=== PATIENT | male | born 1990 | race Caucasian/White ===

== ENCOUNTER 2020-05-25 16:04 | Outpatient (REF) | payer OTHER, SELFPAY | END 2020-05-25 16:05 | disposition home or self-care (01) | LOC: HO.LAB 16:04 | PROVIDERS: Visit Provider Internal Medicine | DX: Z20.828 Contact with and (suspected) exposure to other viral communicable diseases (principal) | CPT/HCPCS: C9803; U0003 ==

== ENCOUNTER 2020-10-12 11:38 | Outpatient (REF) | payer OTHER, SELFPAY ==
[2020-10-12 11:51] LABS: COVID-19 Test Positive (Negative); IDNOW Serial# 55D5AD1C
== END 2020-10-12 11:39 | disposition home or self-care (01) ==
LOC: HO.LAB 11:38
PROVIDERS: Visit Provider Internal Medicine
DX: Z20.822 Contact with and (suspected) exposure to COVID-19 (principal)
CPT/HCPCS: 36415; 87635; C9803

== ENCOUNTER 2020-10-25 14:14 | Outpatient (REF) | payer OTHER, SELFPAY ==
[2020-10-25 14:32] LABS: COVID-19 Test Negative (Negative); IDNOW Serial# 55D5AD1C
== END 2020-10-25 14:15 | disposition home or self-care (01) ==
LOC: HO.LAB 14:14
PROVIDERS: Visit Provider Internal Medicine
DX: Z20.822 Contact with and (suspected) exposure to COVID-19 (principal)
CPT/HCPCS: 36415; 87635; C9803

== ENCOUNTER 2021-09-21 07:51 | Outpatient (REF) | payer OTHER, SELFPAY | END 2021-09-21 07:52 | disposition home or self-care (01) | LOC: HO.HOSX 07:51 | PROVIDERS: Visit Provider Physician Assistant | DX: Z13.89 Encounter for screening for other disorder (principal) ==

== ENCOUNTER 2022-10-01 17:14 | Emergency (ER) | payer MEDICAID, SELFPAY ==
[2022-10-01 17:18] VITALS: BP 125/59; PULSE 79; RESP 16; TEMP 36.7; O2SAT 99; BMI 18.6
[2022-10-01] MEDS: Lidocaine HCl 1 % MPF 5 ML VIAL SUBCUT (17:51)
--- NOTE | 2022-10-01 17:56 | ED_ITS ---
HPI - Wound/Laceration General Chief Complaint: Wound/Laceration Stated Complaint: finger lac Time Seen by Provider: 10/01/22 17:34 Source: patient Mode of arrival: ambulatory Limitations: no limitations History of Present Illness HPI narrative: 31-year-old male who is up-to-date on all immunizations including tetanus vaccine was presenting to the ER with complaints of laceration to his left hand 4th digit dorsal aspect at the joint that occurred prior to arrival while he was opening up a [employer] container can. He denies any bony tenderness any thoughts of foreign bodies or weakness or paresthesias or any other symptoms complaints or concerns at this time. Onset (ago): minute(s) (Prior to arrival) Extremity Location: left: hand Place: home Patient tetanus UTD: Yes Context: accidental Associated symptoms: none Treatments prior to arrival: bandage Related Data Allergies Allergy/AdvReac Type Severity Reaction Status Date / Time No Known Allergies Allergy Verified 10/01/22 17:23 [No Known Allergies*] Review of Systems Review of Systems: Constitutional : No Fever, No Chills, Cardiovascular : No Chest Pain, No SOB Respiratory : No Dyspnea Gastrointestinal : No abdominal pain Musculoskeletal : No Joint Swelling Skin : positive skin laceration, No Foreign bodies, No rash, No surrounding erythema Neuro : No Weakness, No Numbness/tingling Psych : No SI/HI/thoughts of self injury Yes all other systems are reviewed and are negative [facility] Past Medical History Attestation statement: The following information was validated with the patient. Source: old records reviewed and nursing notes reviewed Social History Social History Advance Directives: No Advance Directives Information Provided: No Physical Exam Vital Signs: Vital Signs: Last Vital Signs Temp 98.1 F 10/01/22 17:18 Pulse 79 10/01/22 17:18 Resp 16 10/01/22 17:18 BP 125/59 L 10/01/22 17:18 Pulse Ox 99 10/01/22 17:18 O2 Del Method Room Air 10/01/22 17:18 BMI result Body Mass Index 18.6 vital signs have been reviewed as normal and appeared to be correct. Blood pressure 125/59 Heart rate normal. Respiration rate normal. Temperature normal. Oxygen saturation normal. Appearance: Alert. Oriented X3. No acute distress. Head: Normal external exam. Normocephalic. Atraumatic. Eyes: PERRLA. EOMI. Conjunctiva and sclera normal. Eyelids normal. ENT: Pharynx normal. Uvula midline. Moist mucous membranes. Neck: Normal inspection. Neck supple. FROM. CVS: Normal heart rate and rhythm. Respiratory: No respiratory distress. Painless inspiration. Skin: Skin warm and dry. Normal skin color. Normal skin turgor. Patient 1 cm superficial laceration to the left hand at the dorsal aspect of the ring finger over the PIP. No active bleeding or bony tenderness or obvious ligamentous or tendon injury noted. No additional rashes/lesions noted. Extremities: Extremities exhibit normal range of motion. Extremities nontender. Neuro: Oriented X 3. No motor deficit. No sensory deficit. Reflexes normal. Normal steady gait. No focal neuro deficits noted. Vascular: + radial pulses. Normal cap refill. No cyanosis noted to upper extremity nails and lower extremity toes nails. Course Course Course Narrative: Patient now status post laceration repair with a for interrupted simple stitches. No imaging indicated at this time. Will DC home with symptomatic treatment antibiotics along with instructions to return in 10-14 days for suture removal and to follow up prior if signs of infection. Patient understands agrees the plan. Medications Administered Discontinued Medications Generic Name Dose Route Start Last Admin Trade Name Oswald PRN Reason Stop Dose Admin Lidocaine HCl 5 ml 10/01/22 17:33 10/01/22 17:51 Lidocaine Hcl 1 % Mpf 5 Ml Vial SUBCUT 10/01/22 17:34 5 ml ONCE ONE Administration Procedures Laceration Laceration 1: Site: hand Side (If applicable): left Size (cm): 1 Description: linear and flap Depth: simple, single layer Local Anesthetic: lidocaine 1% Amount of anesthesia used (mL): 3 Pre-repair: wound explored, irrigated extensively and deep structures intact Skin layer closed with: nylon Size (cm): 4-0 Number of sutures: 4 Technique: simple, interrupted Discharge Plan Discharge Clinical Impression: Finger laceration Patient Disposition: Home, Self-Care Instructions: Finger Laceration (ED) Referrals: Hannah Hubbard PA [Emergency Midlevel Provider] - 10 days (for suture removal) Stand Alone Forms: Work/School Release
== END 2022-10-01 18:18 | disposition home or self-care (01) ==
PROVIDERS: Emergency Provider Internal Medicine
DX: S61.215A Laceration without foreign body of left ring finger without damage to nail, initial encounter (principal); W26.8XXA Contact with other sharp object(s), not elsewhere classified, initial encounter; Y93.9 Activity, unspecified; Y92.009 Unspecified place in unspecified non-institutional (private) residence as the place of occurrence of the external cause; Y99.9 Unspecified external cause status
CPT/HCPCS: 12041; 29130; 99282; 99284

== ENCOUNTER 2023-04-14 12:38 | Emergency (ER) | payer MEDICAID, SELFPAY ==
--- NOTE | ~2023-04-14 | XR_ITS ---
EXAMINATION: XR HAND, RIGHT CLINICAL INFORMATION: Pain status post injury COMPARISON: 08/09/2017 TECHNIQUE: PA, lateral, and oblique views of the right hand. FINDINGS: The bones and soft tissues are notable for chronic appearing healed deformity fifth metacarpal neck and head. Overlying soft tissue swelling.. No fracture. Alignment is anatomic. Joint spaces are maintained. Appearances unchanged from baseline. XR/XR hand RT 2V IMPRESSION: No acute findings. Chronic deformity fifth metacarpal.
[2023-04-14 13:10] VITALS: BP 105/60; PULSE 82; RESP 17; TEMP 36.8; O2SAT 98; BMI 17.3
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
[2023-04-14 17:14] VITALS: BP 131/74; PULSE 64; RESP 16; TEMP 36.8; O2SAT 98
[2023-04-14] MEDS: Acetaminophen 325 MG TABLET 975 MG PO (18:51)
--- NOTE | 2023-04-14 18:52 | MHC.EDTECH ---
PROVIDER FRANKY ASSESS AND ADJUSTED SPLINT APPLICATION ON PATIENT RIGHT HAND RING FINGER .
== END 2023-04-14 19:20 | disposition home or self-care (01) ==
PROVIDERS: Emergency Provider Internal Medicine
DX: S62.605A Fracture of unspecified phalanx of left ring finger, initial encounter for closed fracture (principal); Y04.2XXA Assault by strike against or bumped into by another person, initial encounter; Y93.9 Activity, unspecified; Y92.9 Unspecified place or not applicable; Y99.9 Unspecified external cause status
CPT/HCPCS: 29125; 73120; 99283; 99284

== ENCOUNTER 2023-04-30 08:40 | Outpatient (REF) | payer MEDICAID, SELFPAY ==
--- NOTE | ~2023-04-30 | XR_ITS ---
EXAMINATION: XR HAND, RIGHT CLINICAL INFORMATION: Pain. COMPARISON: Radiographs dated 04/14/2023. TECHNIQUE: PA, lateral, and oblique views of the right hand. FINDINGS: There is bony demineralization. There is stable alignment of a mildly impacted, apex volar angulated fracture of the base of the fourth proximal phalanx. No significant new callus formation is noted. A healed boxer's fracture is seen of the fifth metacarpal neck. No acute fracture or dislocation is seen. There is no abnormal bone erosion. The proximal and distal carpal rows are intact. There is no focal soft tissue swelling, gas or foreign body. XR/XR hand RT min 3V IMPRESSION: There is stable alignment of a mildly impacted, apex volar angulated fracture of the base of the fourth proximal phalanx. No significant new callus formation is noted.
== END 2023-04-30 08:41 | disposition home or self-care (01) ==
LOC: HO.HOSX 08:40
PROVIDERS: Visit Provider Orthopaedic Surgery
DX: S62.614A Displaced fracture of proximal phalanx of right ring finger, initial encounter for closed fracture (principal)
CPT/HCPCS: 73130; 99212

== ENCOUNTER 2023-04-30 09:35 | Outpatient (AMB) | payer MEDICAID, SELFPAY ==
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
[2023-04-30 09:46] VITALS: BMI 17.2
== END 2023-04-30 11:01 | disposition home or self-care (01) ==
PROVIDERS: Visit Provider Physician Assistant
DX: S62.619A Displaced fracture of proximal phalanx of unspecified finger, initial encounter for closed fracture (principal)
CPT/HCPCS: 99204

== ENCOUNTER 2023-05-03 08:54 | Day surgery (SDC) | payer MEDICAID, SELFPAY ==
--- NOTE | 2023-05-02 12:25 | P.CONAN_ITS ---
Documented by User: Richelle Brooks NP 05/02/23 12:25 HPI - Anesthesia Eval Consult details Narrative: 32yo M for Right Small Ring Finger CRPP vs ORIF PMFSH Social History Social History Alcohol intake: never Patient Tobacco Use Status: Current everyday Tobacco user Tobacco use type: Cigarette Cigarettes Per Day: 6 Use of substances other than those prescribed or required for medical reasons: No Are you DNR?: No Advance Directives: No Advance Directives Information Provided: Yes Advance Directives on File: No Current occupational status: employed Current occupation: warehouse/ right hand dominant Meds Allergies Allergy/AdvReac Type Severity Reaction Status Date / Time No Known Allergies Allergy Verified 04/30/23 09:47 [No Known Allergies*] Exam Exam Date and Time: May 02, 2023 122 Assessment and Plan Assessment Anesthesia Assessment: Chart Reviewed Documented by User: Otilia Ha MD 05/03/23 10:35 PMFSH Family History Family history of problems with anesthesia: No Surgical History History of Problems with Anesthesia: No Social History Social History Alcohol intake: never Patient Tobacco Use Status: Current everyday Tobacco user Tobacco use type: Cigarette Cigarettes Per Day: 6 Use of substances other than those prescribed or required for medical reasons: No Are you DNR?: No Advance Directives: No Advance Directives Information Provided: Yes Advance Directives on File: No Current occupational status: employed Current occupation: warehouse/ right hand dominant Meds Allergies Allergy/AdvReac Type Severity Reaction Status Date / Time No Known Allergies Allergy Verified 04/30/23 09:47 [No Known Allergies*] Exam Airway Mallampati Class: II TM Dist: >3cm Neck ROM: Full Heart: rrr Lungs: cta Assessment and Plan Assessment Anesthesia Assessment: Anesthesia Plan Discussed and Smoking Cess. Discussed Final Anesthetic Review Family History of Problems with Anesthesia: No History of Problems with Anesthesia: No NPO: Yes ASA Class: II Final Preanesthetic Review: No Changes in Pt Med Stat, Meds/Allgs Chart Reviewe d, Consent Obtained/Reviewed and Anes Risks/Benef Reviewed Patient Risk: Intermediate Procedure Risk: Low Anesthetic Plan Anesthetic Plan: GA Disposition: Standard PACU
[2023-05-03] VITALS (9 sets, daily range): BP systolic 95–118; BP diastolic 44–70; PULSE 48–64; RESP 14–16; TEMP 36.1–36.6; O2SAT 98–100; BMI 18.4
--- NOTE | ~2023-05-03 | FL_ITS ---
EXAMINATION: XR FLUOROSCOPY WITH IMAGES CLINICAL INFORMATION: ORIF. COMPARISON: Previous x-ray of the right hand April 2023 TECHNIQUE: Fluoroscopy Supervised By: Dr. Susan Singer. Fluoroscopy Time: 27.32 seconds. Cumulative Dose: 0.7248 mGy. DAP: 0.0438 Gycm2. Images: 4. FINDINGS: Images demonstrate a K wire or pin transfixing the fracture of the base of the proximal phalanx of the fourth finger. There is improved alignment. FL/FL guidance in OR IMPRESSION: Fluoroscopy guidance for ORIF of right proximal phalanx fracture.
[2023-05-03] MEDS: Lactated Ringers 1,000 ML 100 ML IVCONT (09:43)
--- NOTE | 2023-05-03 09:44 | W.PM.OPN ---
Operative Note Operative Note Date of Service: 05/03/23 Narrative: Operative Note Narrative: Preop diagnosis: 1. 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 Right 5th metacarpal neck fracture , healing well. Postop diagnosis: Same Procedure: 1. right ring finger proximal phalanx fracture closed reduction percutaneous pinning Surgeon: Susan Singer MD Anesthesia: General Anesthesia Findings: ring finger proximal phalanx fracture times almost 3 weeks. I was able to improve the apex volar deformity by only about 10 degrees. Implants: 0.045 K-wires times x1 Tourniquet time: None EBL: Minimal Specimen: None Drains: None Complications: None Disposition: Brought to the recovery room in stable condition Plan: Follow-up in 10-14 days for a wound check, postop radiographs and for placement in a short-arm finger spica cast or splint Anticipate K-wire removal in 4 weeks based on interval bony healing Educate the patient that full fracture healing anticipated in approximately 8-12 weeks. Indications: The patient is 32 years old with a right ring finger proximal phalanx fracture that is greater than 2-week-old and is healing with about 45 degrees of apex volar angulation. . The risks and benefits of operative treatment, including but not limited to risk of damage to blood vessels, nerves, tendons, infection, recurrence, delayed or nonunion of fracture, persistent pain or numbness, incomplete resolution of preoperative symptoms, or need for further surgery were discussed with the patient and they wished to proceed with surgery. Procedure: Once consent was obtained patient was brought back to the operating suite and placed in the operating table in a supine position. . Perioperative antibiotics and general anesthesia was administered by the anesthesia team. A tourniquet was applied to the proximal aspect of the right upper extremity and the limb was prepped and draped in a standard surgical fashion. Tourniquet was not inflated during the case. The FluoroScan was used during the case to assist with our fracture reduction and placement of all implants. A closed reduction was performed on the patient's right ring finger proximal phalanx fracture. Again this fracture is 2 to 3-week-old, though he did note that it was tender to palpation in clinic this week. I was unable to obtain a full correction of the deformity secondary to some interval healing, but I was able to improve the apex volar deformity by perhaps 10 degrees. I placed a single 0.045 K-wire retrograde through the Radial base of the ring finger proximal phalanx. This was then advanced distally across the fracture and down the shaft of the right ring finger proximal phalanx. Again, I was not able to obtain a complete correction, but we did see a correction of about 10 degrees in the apex volar deformity which we are holding with a 0.045 K-wire. He also had some stiffness in the small and ring fingers particularly at the PIP joints. I was able to do a closed manipulation under anesthesia and obtain full passive range of motion of these joints. Fracture alignment was assessed for both angular and rotational malalignment. Once satisfied with our fracture reduction and implant placement, the K-wires were bent and cut short and pin caps applied. Final fluoroscopic images were then obtained. The wounds were copiously irrigated with normal saline. A digital block was performed using some core % plain Marcaine for postop pain control. A Sterile dressing and short volar splint extending to the forearm was applied. The patient appears to have tolerated the procedure well and with no complications. All digits were well vascularized at the conclusion of the case.
== END 2023-05-03 13:55 | disposition home or self-care (01) ==
PROVIDERS: Visit Provider Orthopaedic Surgery
PROC: (CPT 26727; principal; 2023-05-03 10:50)
DX: S62.614A Displaced fracture of proximal phalanx of right ring finger, initial encounter for closed fracture (principal); Y04.2XXA Assault by strike against or bumped into by another person, initial encounter; Y93.9 Activity, unspecified; Y92.9 Unspecified place or not applicable; Y99.9 Unspecified external cause status; F17.210 Nicotine dependence, cigarettes, uncomplicated
CPT/HCPCS: 26727; J0690; J2405; J2704; J2795

== ENCOUNTER → 2023-05-03 08:54 | Outpatient (BNV) | payer MEDICAID, SELFPAY | PROVIDERS: Visit Provider Orthopaedic Surgery | DX: S62.615A Displaced fracture of proximal phalanx of left ring finger, initial encounter for closed fracture (principal) | CPT/HCPCS: 26727 ==

== ENCOUNTER 2023-05-14 10:38 | Outpatient (REF) | payer MEDICAID, SELFPAY ==
--- NOTE | ~2023-05-14 | XR_ITS ---
EXAMINATION: XR HAND, RIGHT CLINICAL INFORMATION: Pain COMPARISON: Right hand radiograph from 04/30/2023 TECHNIQUE: PA, lateral, and oblique views of the right hand. FINDINGS: Status post interval placement of a Santino wire stabilizing a mildly displaced fracture of the fourth proximal phalangeal proximal diaphysis. Orthopedic hardware is grossly intact. Joint space alignment are otherwise maintained. Soft tissues are unremarkable. XR/XR hand RT min 3V IMPRESSION: Status post interval placement of a Santino wire stabilizing a mildly displaced fracture of the fourth proximal phalangeal proximal diaphysis. Orthopedic hardware is grossly intact.
== END 2023-05-14 10:39 | disposition home or self-care (01) ==
LOC: HO.HOSX 10:38
PROVIDERS: Visit Provider Physician Assistant
DX: S62.614D Displaced fracture of proximal phalanx of right ring finger, subsequent encounter for fracture with routine healing (principal)
CPT/HCPCS: 29085; 73130

== ENCOUNTER 2023-05-14 10:51 | Outpatient (AMB) | payer MEDICAID, SELFPAY ==
--- NOTE | 2023-05-14 10:56 | MHC.OFFVIS ---
Intake Intake Visit Reasons: PO-Rt RF CRPPvs ORIF 05/03 AR Intake Note: Julius a 32 year old right hand dominant male presents today for a post operative right RF CRPP, DOS 05/03/23. Patient reports no pain however he feels a stinging sensation at pin site. Allergies No Known Allergies [No Known Allergies*] Allergy (Verified 05/14/23 11:00) HPI PO-Rt RF CRPPvs ORIF 05/03 AR HPI Details 32-year-old right hand dominant male who returns to the office today for post-op right ring finger CRPP, 05/03/[address] Singer. He states he has no pain but he does experience a stinging sensation at the pin site of the finger. He is doing well overall and has no other concerns. PFS Alcohol intake: never Patient Tobacco Use Status: Current everyday Tobacco user Tobacco use type: Cigarette Cigarettes Per Day: 6 Current occupational status: employed Current occupation: warehouse/ right hand dominant Review of Systems Const All systems reviewed & are unremarkable except as noted in HPI and below Physical Exam Extrem Other: Right hand: Normal to inspection. Pin is visible without any redness or drainage around pin site. NVI. Office Procedures Casting/Splints 27248-Rueg/Wrist Cast Application Procedure code (CPT) selection complete Results Reviewed Results Reviewed: Preop diagnosis: 1. 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 Right 5th metacarpal neck fracture , healing well. Postop diagnosis: Same Procedure: 1. right ring finger proximal phalanx fracture closed reduction percutaneous pinning Surgeon: Susan Singer MD Anesthesia: General Anesthesia Findings: ring finger proximal phalanx fracture times almost 3 weeks. I was able to improve the apex volar deformity by only about 10 degrees. Implants: 0.045 K-wires times x1 Assessment & Plan Assessment & Plan (1) Fracture of proximal phalanx of finger of right hand: Code(s): S62.619A - Displaced fracture of proximal phalanx of unspecified finger, initial encounter for closed fracture Plan Anticipate K-wire removal in 4 weeks based on interval bony healing Educate the patient that full fracture healing anticipated in approximately 8-12 weeks. Pin site was cleaned well-padded. He was placed in a finger spica cast with his thumb and index finger free. I educated him on bone healing which is routinely 8-12 weeks. We will plan to remove the pin in the next 4 weeks if there is evidence of adequate bone healing on x-rays. He should perform no heavy lifting with his right arm. He will avoid any type of lifting, pushing, pulling or carrying greater than a cellphone. I would like to see him back in 4 weeks with cast off and new x-rays, sooner if needed. Orders: Orders XR hand RT min 3V Today M79.641 - Pain in right hand Patient Instructions: Scribed for Adam Argueta PA-C, by Angel Scherer medical sonographer, on 05/14/2023 at 11:15 AM BÁRBARA. Adam Valencia PA-C, have personally reviewed and agree with the information entered by the scribe. Coding Level of Care Code Global (30338) Diagnoses Fracture of proximal phalanx of finger of right hand S62.619A CPT Codes Casting - CPT: 43056-Rgal/Wrist Cast Application ([id number])
== END 2023-05-14 11:57 | disposition home or self-care (01) ==
PROVIDERS: Visit Provider Physician Assistant
DX: S62.614A Displaced fracture of proximal phalanx of right ring finger, initial encounter for closed fracture (principal)
CPT/HCPCS: 29085; 99024

== ENCOUNTER 2023-06-19 11:15 | Outpatient (AMB) | payer MEDICAID, SELFPAY ==
--- NOTE | 2023-06-19 12:09 | MHC.OFFVIS ---
Intake Intake Visit Reasons: PO-Rt RF CRPP107/03/22 AR-cast off with xrays Intake Note: Julius a 32 year old right hand dominant male presents today for a post operative right RF CRPP, DOS 05/03/23. Cast removed and xrays updated. Patient reports some pain in the ring finger, 5/10 pain. Allergies No Known Allergies [No Known Allergies*] Allergy (Verified 06/27/23 15:05) Medication List - Last Reconciled 06/19/23 by Lashay Lockett RN No Known Home Meds HPI PO-Rt RF CRPP107/03/22 AR-cast off with xrays HPI Details Julius is a 32 year old right hand dominant man who presents S/P right ring finger CRPP, DOS: 05/03/23. He was removed from his cast and new radiographs taken. Again date of surgery was 05/03/2023. He was seen by Alyssa on 05/14/2023 and placed back into a cast with follow-up 4 weeks later. PENDING SALE TO [facility] Social History Alcohol intake: never Patient Tobacco Use Status: Current everyday Tobacco user Tobacco use type: Cigarette Cigarettes Per Day: 6 Current occupational status: employed Current occupation: warehouse/ right hand dominant Review of Systems Const All systems reviewed & are unremarkable except as noted in HPI and below Physical Exam Const General: no acute distress and alert Orientation/consciousness: patient oriented x3 Neuro General: patient oriented x3 Extrem Other: The patient was alert oriented and in no acute distress His cast was removed and radiographs taken. He has significant stiffness in the middle ring and small fingers. The surrounding skin has overgrown the pin site, though there is small remaining hole perhaps 2 mm in diameter. No appreciable drainage. Fracture site completely non-tender Sensation is intact Cap refill is brisk Radiographs: 3 views of the right hand with attention to the ring finger were taken and viewed by me today in clinic. They show a well-healed proximal phalanx fx with satisfactory position of the K-wire. Psych Appearance: grossly normal Affect: normal affect Attitude: cooperative Assessment & Plan Assessment & Plan (1) Fracture of proximal phalanx of finger of right hand: Code(s): S62.619A - Displaced fracture of proximal phalanx of unspecified finger, initial encounter for closed fracture Plan Assessment & Plan: 1. Right ring finger proximal phalanx fracture, S/P CRPP DOS: 05/03/23 Seen today with K-wire in place and skin over growing the K-wire. k-wire removed: 06/19/23 2. Right hand stiffness The patient appears to be doing well post-operatively, and the fracture is well healed. The K-wire was buried and overgrown by surrounding skin, and needed to be removed following an incision being made in the skin. He does have significant stiffness in his fingers. Procedure: The risks and benefits of incising the skin and removing the K-wire were discussed with him and consent was obtained. He wished to proceed with our incision and removal of the K-wire. Diagnosis: Retained buried K-wire Procedure: Incision, and removal of buried K-wire The area about the buried K-wire was cleaned using Betadine and ChloraPrep. I injected about the buried K-wire with some 1% lidocaine. Once assured the area was well anesthetized, I made a small incision measuring perhaps 8-10 mm that was longitudinally oriented and directly over the K-wire. I was then able to grasp the K-wire with a spinning mule operator and the K-wire was easily withdrawn and removed from the patient. The wound was then cleansed with some ChloraPrep, and the small amount of bleeding controlled with a brief period of local pressure. The entire hand was cleaned, as it had been in a cast. Small amount of antibiotic ointment was placed on the wound and clean dressing was applied. The patient appears to have tolerated the procedure well with no complications. While I do not see any evidence of infection, I want to assure that he is not get 1. For that reason I am placing him on a 7 day course of Augmentin. He also has, understandably, some significant finger stiffness. We worked on some [id number] exercises today in clinic, and he is going to work on those exercises 20 times a day. I am also ordering some OT hand therapy. He may remove his dressing in 2 days and then may wash his hands in the shower or sink with soap and water but should avoid submerging underwater for at least 5 days. He will follow up in 1 week with Adam for wound check and to assess range of motion. They showed work on range of motion in clinic to again show him the exercises and help him build confidence in doing these exercises at home. He will need to be followed closely, perhaps every 2 weeks until we are sure he is making good progress with his range of motion. Scribed for Susan Singer MD by Jack Marti, nurses medical assistants phlebotomists, on 06/19/23 at 12:20 PM, EST. Orders: Orders OT Evaluation and Treatment 06/19/23 S62.614A - Displaced fracture of proximal phalanx of right ring finger, initial encounter for closed fracture, M25.641 - Stiffness of right hand, not elsewhere classified XR hand RT min 3V 06/19/23 M79.641 - Pain in right hand Medications: New amoxicillin-pot clavulanate 875-125 mg 1 tab PO Q12H 14 tabs 0RF Coding Level of Care Code Global (86826) Diagnoses Fracture of proximal phalanx of finger of right hand S62.619A
== END 2023-06-19 13:12 | disposition home or self-care (01) ==
PROVIDERS: Visit Provider Orthopaedic Surgery
DX: S62.619A Displaced fracture of proximal phalanx of unspecified finger, initial encounter for closed fracture (principal)
CPT/HCPCS: 99024

== ENCOUNTER 2023-06-19 11:15 | Outpatient (REF) | payer MEDICAID, SELFPAY | END 2023-06-19 11:16 | disposition home or self-care (01) | LOC: HO.HOSX 11:15 | PROVIDERS: Visit Provider Orthopaedic Surgery | DX: S62.614D Displaced fracture of proximal phalanx of right ring finger, subsequent encounter for fracture with routine healing (principal) | CPT/HCPCS: 73130; 99212 ==

== ENCOUNTER 2023-06-27 14:26 | Outpatient (AMB) | payer MEDICAID, SELFPAY ==
--- NOTE | 2023-06-27 15:00 | MHC.OFFVIS ---
Intake Intake Visit Reasons: PO-PO-Rt RF CRPP107/03/22 AR-ROM check Intake Note: Julius a 32 year old right hand dominant male presents today for a post operative wound and ROM check s/p right RF CRPP, DOS 05/03/23. Patient reports discomfort and pain with attempting to make a fist. He states that he continues to do at home hand exercises. Allergies No Known Allergies [No Known Allergies*] Allergy (Verified 06/27/23 15:05) HPI PO-PO-Rt RF CRPP107/03/22 AR-ROM check HPI Details 32-year-old right hand dominant male who returns to the office today for post-op right ring finger CRPP, 05/03/[address] Singer. He states he has improvement in his symptoms but he continues to have pain and discomfort in his hand with making a fist. He is working on the home exercises for hand as instructed. He is doing well otherwise and has no concerns today. [facility] Social History Alcohol intake: never Patient Tobacco Use Status: Current everyday Tobacco user Tobacco use type: Cigarette Cigarettes Per Day: 6 Current occupational status: employed Current occupation: warehouse/ right hand dominant Review of Systems Const All systems reviewed & are unremarkable except as noted in HPI and below Physical Exam Extrem Other: Right ring finger. Normal to inspection. He can full extend. He can bend 90 degrees at MCP and 85 degrees at PIP. He can bring DIP just 2 cm from 2nd palmar crease. NVI. Results Reviewed Results Reviewed: X-rays of the right hand obtained in the office today show stable fracture alignment with interval healing with the base of right ring finger. Assessment & Plan Assessment & Plan (1) Fracture of proximal phalanx of finger of right hand: Code(s): S62.619A - Displaced fracture of proximal phalanx of unspecified finger, initial encounter for closed fracture Plan We worked on some ROM techniques in the office today. I stress the importance of working these techniques at home. He was given information to occupational therapy to make an appointment. He will see us back in 2 weeks for ROM check, sooner if needed. Orders: Orders XR hand RT min 3V Today M79.641 - Pain in right hand Patient Instructions: Scribed for Jeffrey-Angélica Argueta PA-C, by Angel Scherer, medical records manager, on 06/27/2023 at 2:45 PM Adam HOLDER PA-C, have personally reviewed and agree with the information entered by the scribe. Coding Level of Care Code Global (99749) Diagnoses Fracture of proximal phalanx of finger of right hand S62.619A
== END 2023-06-27 16:09 | disposition home or self-care (01) ==
PROVIDERS: Visit Provider Physician Assistant
DX: S62.614D Displaced fracture of proximal phalanx of right ring finger, subsequent encounter for fracture with routine healing (principal)
CPT/HCPCS: 99024

== ENCOUNTER 2023-06-27 15:36 | Outpatient (REF) | payer MEDICAID, SELFPAY ==
--- NOTE | ~2023-06-27 | XR_ITS ---
EXAMINATION: XR HAND, RIGHT CLINICAL INFORMATION: Right hand pain, ring finger. COMPARISON: None available. TECHNIQUE: PA, lateral, and oblique views of the right hand. FINDINGS: Since the prior exam, a stabilizing wire has been removed from the middle phalanx of the ring finger. A fracture is again noted at the base of the proximal phalanx with some mild medial angulation of the distal fracture fragment. Periosteal reaction is seen around the fracture. There is generalized bony demineralization. Mild degenerative changes are seen at the DIP joints. No acute fractures. XR/XR hand RT min 3V IMPRESSION: 1. Healing fracture base of proximal phalanx ring finger. 2. Mild degenerative changes at the DIP joints.
== END 2023-06-27 15:37 | disposition home or self-care (01) ==
LOC: HO.HOSX 15:36
PROVIDERS: Visit Provider Physician Assistant
DX: S62.614D Displaced fracture of proximal phalanx of right ring finger, subsequent encounter for fracture with routine healing (principal)
CPT/HCPCS: 73130; 99212

== ENCOUNTER → 2023-07-11 14:59 | Outpatient (BNVA) | payer MEDICAID, SELFPAY | PROVIDERS: Visit Provider Physician Assistant | DX: S62.619D Displaced fracture of proximal phalanx of unspecified finger, subsequent encounter for fracture with routine healing (principal) | CPT/HCPCS: 99212 ==

== ENCOUNTER 2023-07-11 15:20 | Outpatient (AMB) | payer MEDICAID, SELFPAY ==
--- NOTE | 2023-07-11 15:07 | A.OFFVIS_ITS ---
Intake Intake Visit Reasons: PO-Rt RF CRPP107/03/22 AR-ROM check Intake Note: Julius a 32 year old right hand dominant male presents today for a post operative wound check s/p right RF CRPP, DOS 05/03/23. Patient reports --. Patient reports he has not started PT due to insurance referral. He continues to do at home exercises that has been helping with his ROM. States having little discomfort and pain with reopening his hand from making a fist. Allergies No Known Allergies [No Known Allergies*] Allergy (Verified 07/11/23 15:11) HPI PO-Rt RF CRPP107/03/22 AR-ROM check HPI Details 32-year-old right hand dominant male who returns to the office today for post-op right ring finger CRPP, 05/03/[address] Singer. He states he has mild discomfort and pain with reopening his hand after making a fist. He has not started physical therapy due to insurance issues however he continues to do exercises at home with benefits. [facility] Social History Alcohol intake: never Patient Tobacco Use Status: Current everyday Tobacco user Tobacco use type: Cigarette Cigarettes Per Day: 6 Current occupational status: employed Current occupation: warehouse/ right hand dominant Review of Systems Const All systems reviewed & are unremarkable except as noted in HPI and below Physical Exam Extrem Other: Right ring finger. Normal to inspection. He can full extend. He can bend 90 degrees at MCP and 85 degrees at PIP. He can bring DIP just 2 cm from 2nd palmar crease. NVI. Assessment & Plan Assessment & Plan (1) Fracture of proximal phalanx of finger of right hand: Code(s): S62.619A - Displaced fracture of proximal phalanx of unspecified finger, initial encounter for closed fracture Plan A handout of home exercises was given today in the office. He will continue to work on ROM and hide spreader strengthening. He will return to work without restrictions and see us back as needed. Patient Instructions: Scribed for Adam Argueta PA-C, by Angel Scherer medical transcription editor, on 07/11/2023 at 3:15 PM EST. IAdam PA-C, have personally reviewed and agree with the information entered by the scribe. Coding Level of Care Code Global (42939) Diagnoses Fracture of proximal phalanx of finger of right hand S62.619A
== END 2023-07-11 15:24 | disposition home or self-care (01) ==
PROVIDERS: Visit Provider Physician Assistant
DX: S62.619A Displaced fracture of proximal phalanx of unspecified finger, initial encounter for closed fracture (principal)
CPT/HCPCS: 99024